=== PATIENT | female | born 1985 | race Caucasian/White ===

== ENCOUNTER 2020-03-22 20:31 | Emergency (ER) | payer OTHER ==
[~2020-03-22] VITALS: Ht 160 cm; Wt 77.6 kg
== END 2020-03-22 22:56 | disposition home or self-care (01) ==
LOC: ER 20:31
DX: O20.8 Other hemorrhage in early pregnancy (principal); Z3A.01 Less than 8 weeks gestation of pregnancy

== ENCOUNTER 2022-01-21 04:29 | Emergency (ER) | payer OTHER ==
[~2022-01-21] VITALS: Ht 162.6 cm; Wt 79.4 kg
[2022-01-21] MEDS ORDERED: DICY20TA PO (11:54)
[2022-01-21] MEDS ORDERED: PEPCID AC20 MG PO (11:54)
[2022-01-21] MEDS ORDERED: KETO10TA2 PO (11:54)
== END 2022-01-21 12:19 ==
LOC: ER 04:29
DX: K80.50 Calculus of bile duct without cholangitis or cholecystitis without obstruction (principal)

== ENCOUNTER 2022-03-04 06:00 | Day surgery (SDC) | payer OTHER ==
[~2022-03-04 06:00] MED LIST: DICY20TA PO; KETO10TA2 PO; PEPCID AC20 MG PO; PROTONIX20 MG PO
[2022-03-04] MEDS ORDERED: ULTRACET PO (09:36)
== END 2022-03-04 11:30 | disposition home or self-care (01) ==
LOC: CIR.AMB 06:00
PROVIDERS: ATTEND Surgery
DX: K80.10 Calculus of gallbladder with chronic cholecystitis without obstruction (principal); Z20.822 Contact with and (suspected) exposure to COVID-19